=== PATIENT | female | born 1995 | race Caucasian/White ===

== ENCOUNTER 2022-11-04 18:34 | Emergency (ER) | payer MEDICAID, OTHER ==
[~2022-11-04] VITALS: Ht 157.5 cm; Wt 59.0 kg
[2022-11-04 18:44] VITALS: BP 140/70; PULSE 92; RESP 18; TEMP 98.8; O2SAT 99
[2022-11-04] MEDS ORDERED: IBUPROFEN 600MG TABLET PO ONE (19:15)
[2022-11-04] MEDS ORDERED: IBUPROFEN 600MG TABLET PO NR (21:15)
[2022-11-04] MEDS ORDERED: HYDROCODONE/ACETAMINOPHEN 5/325MG TABLET PO ONE (22:30)
[2022-11-04] MEDS ORDERED: IBUP-2029 MT (22:42)
== END 2022-11-04 22:30 | disposition left against medical advice (07) ==
LOC: ER 18:34
DX: S52.502A Unspecified fracture of the lower end of left radius, initial encounter for closed fracture (principal); X58.XXXA Exposure to other specified factors, initial encounter; Y93.89 Activity, other specified; Y92.89 Other specified places as the place of occurrence of the external cause; Y99.8 Other external cause status
CPT/HCPCS: 29125; 73070; 73120; 99284